=== PATIENT | male | born 2000 | race Caucasian/White ===

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

== ENCOUNTER 2018-05-06 08:59 | Emergency (ER) | payer OTHER, MEDICAID ==
[2018-05-06 09:58] LABS: ADD UMIC NO; UR ASCORBIC ACID NEGATIVE (NEGATIVE); UR BILIRUBIN (Dip) NEGATIVE (NEGATIVE); UR BLOOD (Dip) NEGATIVE (NEGATIVE); UR CLARITY CLEAR (CLEAR); UR COLOR STRAW (YELLOW); UR GLUCOSE (Dip) NEGATIVE (NEGATIVE); UR KETONES (Dip) NEGATIVE (NEGATIVE); UR LEUKOCYTE ESTERASE (Dip) NEGATIVE Leu/ul (NEGATIVE); UR NITRITE (Dip) NEGATIVE (NEGATIVE); UR SPECIFIC GRAVITY (Dip) 1.002 (1.003-1.030); UR TOTAL PROTEIN (Dip) NEGATIVE (NEGATIVE); UR UROBILINOGEN (Dip) NEGATIVE (NEGATIVE)
[2018-05-06 10:21] LABS: ADD MAN DIFF? NO
[2018-05-06 10:24] LABS: WHITE BLOOD COUNT 5.5 10^3/ul (4.8-10.8)
[2018-05-06 10:24] LABS: BASOPHILS % 0.4 % (0.0-2.0); EOSINOPHILS % 0.5 % (0.0-7.0); HEMATOCRIT 47.8 % (42.0-52.0); HEMOGLOBIN 16.3 g/dl (14.0-18.0); LYMPHOCYTES # 0.8 10^3/ul (0.8-2.9); LYMPHOCYTES % 14.6 % (18.0-55.0); MEAN CORPUSCULAR HEMOGLOBIN 29.1 pg (29.0-33.0); MEAN CORPUSCULAR HGB CONC 34.1 g/dl (32.0-37.0); MEAN CORPUSCULAR VOLUME 85.2 fl (72.0-104.0); MEAN PLATELET VOLUME 8.5 fl (7.4-10.4); MONOCYTE # 0.6 10^3/ul (0.3-0.9); MONOCYTES % 10.3 % (0.0-13.0); NEUTROPHIL # 4.1 10^3/ul (1.6-7.5); NEUTROPHILS % 73.8 % (30.0-74.0); PLATELET COUNT 292 10^3/UL (140-415); RED BLOOD COUNT 5.61 10^6/ul (4.70-6.10); RED CELL DISTRIBUTION WIDTH 12.8 % (11.5-14.5)
[2018-05-06 10:49] LABS: ALANINE AMINOTRANSFERASE 55 IU/L (13-69); ALBUMIN 4.9 g/dl (3.3-4.9); ALBUMIN/GLOBULIN RATIO 1.36; ALKALINE PHOSPHATASE 89 IU/L (42-121); ANION GAP 12 (5-13); ASPARTATE AMINO TRANSFERASE 41 IU/L (15-46); BILIRUBIN,INDIRECT 0.5 mg/dl (0-1.1); BILIRUBIN,TOTAL 0.5 mg/dl (0.2-1.3); BLOOD UREA NITROGEN 6 mg/dl (7-20); CALCIUM 9.7 mg/dl (8.4-10.2); CARBON DIOXIDE 28 mmol/L (21-31); CHLORIDE 103 mmol/L (97-110); CREATININE 0.69 mg/dl (0.61-1.24); Estimated GFR > 60 mL/min (>60); GLUCOSE 95 mg/dl (70-220); LIPASE 48 U/L (23-300); POTASSIUM 3.8 mmol/L (3.5-5.1); SODIUM 143 mmol/L (135-144); TOTAL PROTEIN 8.5 g/dl (6.1-8.1)
[2018-05-06 10:57] LABS: MONOTEST Negative (NEG)
== END 2018-05-06 11:39 | disposition home or self-care (01) ==
LOC: FTE 08:59
DX: R10.32 Left lower quadrant pain (principal)
CPT/HCPCS: 36415; 74176; 80053; 81003; 83690; 85025; 86308; 99284-25

== ENCOUNTER 2018-08-26 13:11 | Inpatient (IN) | payer MEDICAID, OTHER ==
[2018-08-26 14:12] LABS: ADD MAN DIFF? NO
[2018-08-26 14:15] LABS: BASOPHILS % 0.2 % (0.0-2.0); EOSINOPHILS % 0.2 % (0.0-7.0); HEMATOCRIT 38.6 % (42.0-52.0); HEMOGLOBIN 12.1 g/dl (14.0-18.0); LYMPHOCYTES # 1.9 10^3/ul (0.8-2.9); LYMPHOCYTES % 11.1 % (18.0-55.0); MEAN CORPUSCULAR HEMOGLOBIN 25.6 pg (29.0-33.0); MEAN CORPUSCULAR HGB CONC 31.3 g/dl (32.0-37.0); MEAN CORPUSCULAR VOLUME 81.8 fl (72.0-104.0); MEAN PLATELET VOLUME 7.8 fl (7.4-10.4); MONOCYTE # 1.4 10^3/ul (0.3-0.9); MONOCYTES % 8.1 % (0.0-13.0); NEUTROPHIL # 13.5 10^3/ul (1.6-7.5); NEUTROPHILS % 79.3 % (30.0-74.0); PLATELET COUNT 888 10^3/UL (140-415); RED BLOOD COUNT 4.72 10^6/ul (4.70-6.10); RED CELL DISTRIBUTION WIDTH 12.4 % (11.5-14.5)
[2018-08-26 14:18] LABS: ADD UMIC NO; UR ASCORBIC ACID NEGATIVE (NEGATIVE); UR BILIRUBIN (Dip) NEGATIVE (NEGATIVE); UR BLOOD (Dip) NEGATIVE (NEGATIVE); UR CLARITY CLEAR (CLEAR); UR COLOR YELLOW (YELLOW); UR GLUCOSE (Dip) NEGATIVE (NEGATIVE); UR KETONES (Dip) NEGATIVE (NEGATIVE); UR LEUKOCYTE ESTERASE (Dip) NEGATIVE Leu/ul (NEGATIVE); UR NITRITE (Dip) NEGATIVE (NEGATIVE); UR TOTAL PROTEIN (Dip) NEGATIVE (NEGATIVE); UR UROBILINOGEN (Dip) 1+ mg/dL (NEGATIVE)
[2018-08-26 14:22] LABS: PATH REVIEW? YES
[2018-08-26 14:33] LABS: ALANINE AMINOTRANSFERASE 32 IU/L (13-69); ALBUMIN 3.6 g/dl (3.3-4.9); ALBUMIN/GLOBULIN RATIO 0.81; ALKALINE PHOSPHATASE 102 IU/L (42-121); ANION GAP 12 (5-13); ASPARTATE AMINO TRANSFERASE 28 IU/L (15-46); BILIRUBIN,INDIRECT 0.8 mg/dl (0-1.1); BILIRUBIN,TOTAL 0.8 mg/dl (0.2-1.3); BLOOD UREA NITROGEN 7 mg/dl (7-20); CALCIUM 8.6 mg/dl (8.4-10.2); CARBON DIOXIDE 29 mmol/L (21-31); CHLORIDE 96 mmol/L (97-110); Estimated GFR > 60 mL/min (>60); GLUCOSE 113 mg/dl (70-220); POTASSIUM 4.3 mmol/L (3.5-5.1); SODIUM 137 mmol/L (135-144)
[2018-08-26 15:22] LABS: CREATINE KINASE 43 IU/L (23-200)
[2018-08-26 15:36] LABS: CK INDEX 1.1; CK-MB 0.47 ng/ml (0.0-2.4)
[2018-08-26 15:45] LABS: INR 1.12; PARTIAL THROMBOPLASTIN TIME 33.4 Sec (23.0-35.0); PROTIME 14.5 Sec (11.9-14.9); PT RATIO 1.1
[2018-08-26 15:54] LABS: TROPONIN-I < 0.012 ng/ml (0.000-0.120)
[2018-08-26 16:04] LABS: HIV 1&2 ANTIBODY NEGATIVE (NEGATIVE)
[2018-08-26] MEDS: IOHEXOL 100 ML (16:10)
[2018-08-26] MEDS: SOD CHLORIDE 0.9% 100 ML (16:10)
[2018-08-26 16:28] LABS: AADO2 Arterial 25.7 mmHg (7.0-24.0); Arterial Base Excess 0.4 mmol/L (-3.0-3); Arterial Blood Gas Oxygen Sat 96.1 mmHG (95.0-98.0); Arterial COHb 0.3 % (0.0-3.0); Arterial Fraction of Oxyhgb 95.5 % (93.0-99.0); Arterial MetHb 0.3 % (0.0-1.5); Arterial pCO2 35.2 mmhg (35-45); MODE ROOM AIR; Site LB
[2018-08-26] MEDS ORDERED: ONDANSETRON 4 MG INJ IV ×2 (16:30→17:00)
[2018-08-26] MEDS ORDERED: ACETAMINOPHEN 325 MG TAB PO (16:30)
[2018-08-26] MEDS ORDERED: ZOLPIDEM 5 MG TAB PO (17:00)
[2018-08-26] MEDS ORDERED: morphine 2 MG INJ IV (17:00)
[2018-08-26] MEDS ORDERED: VANCOMYCIN IV PER PHARMACY XX (17:00)
[2018-08-26] MEDS ORDERED: NACL 0.9% 3 ML SYG IV (17:00)
[2018-08-26] MEDS: VANCOMYCIN 1 GM 250 ML IVPB (18:00)
[2018-08-26 18:01] LABS: FREE THYROXINE INDEX (Calc) 3.14 ug/ml (0.65-3.89); T3 UPTAKE 40.8 % (23.5-40.5); T4 (THYROXINE) 7.7 ug/dl (5.5-11.0)
[2018-08-26] MEDS: FLUCONAZOLE 200 MG TAB PO (19:03)
[2018-08-26] MEDS: PIPER-TAZO 3.375 GM IV (PMX) 100 ML IVPB (19:03)
[2018-08-26] MEDS: LEVETIRACETAM 500 MG TAB PO (20:07)
[2018-08-26] MEDS: SOD CHLORIDE 0.9% 1,000 ML IV (22:25)
[2018-08-27] MEDS: ACETAMINOPHEN 325 MG TAB PO ×2 (04:54→23:05)
[2018-08-27 06:14] LABS: ADD MAN DIFF? NO
[2018-08-27 06:19] LABS: WHITE BLOOD COUNT 17.4 10^3/ul (4.8-10.8)
[2018-08-27 06:19] LABS: BASOPHILS % 0.2 % (0.0-2.0); EOSINOPHILS % 0.2 % (0.0-7.0); HEMATOCRIT 34.6 % (42.0-52.0); HEMOGLOBIN 11.1 g/dl (14.0-18.0); LYMPHOCYTES # 2.3 10^3/ul (0.8-2.9); LYMPHOCYTES % 12.9 % (18.0-55.0); MEAN CORPUSCULAR HEMOGLOBIN 25.8 pg (29.0-33.0); MEAN CORPUSCULAR HGB CONC 32.1 g/dl (32.0-37.0); MEAN CORPUSCULAR VOLUME 80.3 fl (72.0-104.0); MONOCYTE # 1.4 10^3/ul (0.3-0.9); MONOCYTES % 8.2 % (0.0-13.0); NEUTROPHIL # 13.5 10^3/ul (1.6-7.5); NEUTROPHILS % 77.6 % (30.0-74.0); PLATELET COUNT 841 10^3/UL (140-415); RED BLOOD COUNT 4.31 10^6/ul (4.70-6.10); RED CELL DISTRIBUTION WIDTH 12.6 % (11.5-14.5)
[2018-08-27 06:33] LABS: HEMOGLOBIN A1C 5.5 % (0-5.9)
[2018-08-27 06:48] LABS: ANION GAP 11 (5-13); BLOOD UREA NITROGEN 7 mg/dl (7-20); CALCIUM 8.2 mg/dl (8.4-10.2); CARBON DIOXIDE 26 mmol/L (21-31); CHLORIDE 102 mmol/L (97-110); CREATININE 0.75 mg/dl (0.61-1.24); Estimated GFR > 60 mL/min (>60); GLUCOSE 121 mg/dl (70-220); MAGNESIUM 2.2 mg/dl (1.7-2.5); PHOSPHORUS 4.7 mg/dl (2.5-4.9); POTASSIUM 3.6 mmol/L (3.5-5.1); SODIUM 139 mmol/L (135-144)
[2018-08-27] MEDS: VANCOMYCIN 1 GM 250 ML IVPB ×2 (08:17→11:23)
[2018-08-27] MEDS: PIPER-TAZO 3.375 GM IV (PMX) 100 ML IVPB ×4 (09:28→17:46)
[2018-08-27] MEDS: LEVETIRACETAM 500 MG TAB PO ×2 (09:29→20:54)
[2018-08-27] MEDS: FLUCONAZOLE 200 MG TAB PO (09:29)
[2018-08-27] MEDS: VANCOMYCIN TROUGH XX (17:32)
[2018-08-27] MEDS: VANCOMYCIN 1 GM (PMX) 250 ML IVPB (19:20)
[2018-08-27] MEDS: HYDROCODONE/APAP (5/325) TAB PO (22:08)
[2018-08-28] MEDS: PIPER-TAZO 3.375 GM IV (PMX) 100 ML IVPB ×4 (00:06→17:53)
[2018-08-28 04:56] LABS: VANCOMYCIN,TROUGH < 5.0 ug/ml (10.0-20.0)
[2018-08-28] MEDS: VANCOMYCIN 1 GM (PMX) 250 ML IVPB (05:13)
[2018-08-28] MEDS: LEVETIRACETAM 500 MG TAB PO ×2 (09:45→20:59)
[2018-08-28] MEDS: FLUCONAZOLE 200 MG TAB PO (09:45)
[2018-08-28] MEDS: FENTAnyl 50 MCG/ML VIAL (11:18)
[2018-08-28] MEDS: LIDOCAINE 1% (MDV) 20 ML INJ (11:45)
[2018-08-28] MEDS: MIDAZOLAM 1 MG/ML 2 ML INJ (11:57)
[2018-08-28 12:07] LABS: NIL 0.01 IU/mL; QUANTIFERON(R)-TB GOLD NEGATIVE (NEGATIVE)
[2018-08-28] MEDS ORDERED: VANCOMYCIN HCL 1.5 GM in SOD CHLORIDE 0.9% 250 ML IVPB (13:00)
[2018-08-28] MEDS: VANCOMYCIN HCL 1.25 GM in SOD CHLORIDE 0.9% 250 ML IVPB ×2 (13:43→20:59)
[2018-08-28 14:46] LABS: LACTATE DEHYDROGENASE 1334 IU/L (313-618)
[2018-08-28 15:19] LABS: CARCINOEMBRYONIC ANTIGEN 5.2 ng/ml (0.0-5.0)
[2018-08-28 16:07] LABS: IRON 27 ug/dl (35-150)
[2018-08-28 16:17] LABS: % IRON SATURATION 15 % SAT (22-52); TOTAL IRON BINDING CAPACITY 184 ug/dl (241-421)
[2018-08-28] MEDS: BARIUM SULF 2% 450 ML BTL (BERRY SMOOTHIE) PO (16:40)
[2018-08-28] MEDS: ACETAMINOPHEN 325 MG TAB PO (20:59)
[2018-08-28] MEDS ORDERED: SOD CHLORIDE 0.9% 100 ML (21:13)
[2018-08-28] MEDS ORDERED: IOHEXOL 300MG/ML 150 ML BTL (21:13)
[2018-08-29] MEDS: PIPER-TAZO 3.375 GM IV (PMX) 100 ML IVPB ×5 (00:47→23:47)
[2018-08-29] MEDS: VANCOMYCIN HCL 1.25 GM in SOD CHLORIDE 0.9% 250 ML IVPB (05:14)
[2018-08-29] MEDS: ACETAMINOPHEN 325 MG TAB PO ×2 (06:55→21:52)
[2018-08-29] MEDS: LEVETIRACETAM 500 MG TAB PO ×2 (09:09→21:50)
[2018-08-29] MEDS: FLUCONAZOLE 200 MG TAB PO (09:09)
[2018-08-29 12:48] LABS: VANCOMYCIN,TROUGH 15.5 ug/ml (10.0-20.0)
[2018-08-30] MEDS: PIPER-TAZO 3.375 GM IV (PMX) 100 ML IVPB ×3 (05:31→17:22)
[2018-08-30] MEDS: LEVETIRACETAM 500 MG TAB PO ×2 (08:25→21:14)
[2018-08-30] MEDS: FLUCONAZOLE 200 MG TAB PO (08:25)
[2018-08-31 06:04] LABS: ADD MAN DIFF? NO
[2018-08-31 06:18] LABS: BASOPHIL # 0.1 10^3/ul (0.0-0.1); BASOPHILS % 0.3 % (0.0-2.0); EOSINOPHILS # 0.1 10^3/ul (0.0-0.5); EOSINOPHILS % 0.9 % (0.0-7.0); HEMOGLOBIN 10.9 g/dl (14.0-18.0); LYMPHOCYTES # 2.8 10^3/ul (0.8-2.9); LYMPHOCYTES % 18.7 % (18.0-55.0); MEAN CORPUSCULAR HEMOGLOBIN 25.1 pg (29.0-33.0); MEAN CORPUSCULAR HGB CONC 31.1 g/dl (32.0-37.0); MEAN CORPUSCULAR VOLUME 80.5 fl (72.0-104.0); MONOCYTE # 1.1 10^3/ul (0.3-0.9); MONOCYTES % 7.3 % (0.0-13.0); NEUTROPHIL # 10.6 10^3/ul (1.6-7.5); NEUTROPHILS % 71.7 % (30.0-74.0); PLATELET COUNT 822 10^3/UL (140-415); RED BLOOD COUNT 4.35 10^6/ul (4.70-6.10)
[2018-08-31 06:18] LABS: WHITE BLOOD COUNT 14.8 10^3/ul (4.8-10.8)
[2018-08-31 06:42] LABS: ALANINE AMINOTRANSFERASE 37 IU/L (13-69); ALBUMIN 3.1 g/dl (3.3-4.9); ALBUMIN/GLOBULIN RATIO 0.79; ALKALINE PHOSPHATASE 82 IU/L (42-121); ANION GAP 10 (5-13); ASPARTATE AMINO TRANSFERASE 45 IU/L (15-46); BILIRUBIN,INDIRECT 0.4 mg/dl (0-1.1); BILIRUBIN,TOTAL 0.4 mg/dl (0.2-1.3); BLOOD UREA NITROGEN 4 mg/dl (7-20); CALCIUM 8.3 mg/dl (8.4-10.2); CARBON DIOXIDE 26 mmol/L (21-31); CHLORIDE 105 mmol/L (97-110); CREATININE 0.68 mg/dl (0.61-1.24); Estimated GFR > 60 mL/min (>60); GLUCOSE 109 mg/dl (70-220); SODIUM 141 mmol/L (135-144)
[2018-08-31] MEDS: LEVETIRACETAM 500 MG TAB PO ×2 (09:14→20:06)
[2018-08-31] MEDS: ACETAMINOPHEN 325 MG TAB PO (20:06)
[2018-09-01] MEDS: LEVETIRACETAM 500 MG TAB PO (09:45)
[2018-09-01] MEDS ORDERED: POLYMYXIN/BACITRACIN 1L IRRIG (10:39)
[2018-09-01] MEDS ORDERED: MIDAZOLAM 1 MG/ML 2 ML INJ (10:57)
[2018-09-01] MEDS ORDERED: FENTAnyl 50 MCG/ML VIAL (10:57)
[2018-09-01] MEDS ORDERED: CEFAZOLIN 1 GM/50 ML (PMX) 50 ML IVPB (11:12)
[2018-09-01] MEDS ORDERED: LIDOCAINE 1%/EPI 30 ML INJ INJ (11:30)
[2018-09-01] MEDS ORDERED: LIDOCAINE 1% (MDV) 20 ML INJ (12:39)
[2018-09-01] MEDS: GUAIFENESIN/CODEINE 5ML CUP PO (14:47)
[2018-09-01] MEDS: HYDROCODONE/APAP (5/325) TAB PO (16:10)
[2018-09-01 18:29] LABS: PROTIME 15.3 Sec (11.9-14.9); PT RATIO 1.2
== END 2018-09-01 18:48 | disposition home or self-care (01) | DRG 981 ==
LOC: PP2 08-30 19:21 → TEL 22:05 → FTE 13:11
PROC: 0WBC3ZX Excision of Mediastinum, Percutaneous Approach, Diagnostic (ICD-10-PCS; principal; 2018-08-28)
PROC: 0JH60WZ Insertion of Totally Implantable Vascular Access Device into Chest Subcutaneous Tissue and Fascia, Open Approach (ICD-10-PCS; 2018-09-01)
PROC: 05HM33Z Insertion of Infusion Device into Right Internal Jugular Vein, Percutaneous Approach (ICD-10-PCS; 2018-09-01)
PROC: B5131ZA Fluoroscopy of Right Jugular Veins using Low Osmolar Contrast, Guidance (ICD-10-PCS; 2018-09-01)
DX: C38.1 Malignant neoplasm of anterior mediastinum (principal); E43 Unspecified severe protein-calorie malnutrition; Z68.1 Body mass index [BMI] 19.9 or less, adult; R64 Cachexia; R65.10 Systemic inflammatory response syndrome (SIRS) of non-infectious origin without acute organ dysfunction; R59.1 Generalized enlarged lymph nodes; G40.909 Epilepsy, unspecified, not intractable, without status epilepticus; D47.3 Essential (hemorrhagic) thrombocythemia; Z72.0 Tobacco use; K59.00 Constipation, unspecified
CPT/HCPCS: 36415; 36561; 36600; 71045; 71275; 74178; 76870; 77012; 80048; 80053; 80202; 81003; 82105; 82378; 82550; 82553; 82728; 82803; 83036; 83540; 83615; 83735; 84100; 84436; 84479; 84484; 84702; 85025; 85610; 85730; 86480; 86635; 86703; 87040-91; 88307; 88313; 88341; 88342; 93005; 93306; 94010; 94726; 94729; 99285-25

== ENCOUNTER 2018-09-07 01:43 | Inpatient (IN) | payer OTHER, MEDICAID ==
[2018-09-07 02:11] LABS: ADD MAN DIFF? NO
[2018-09-07 02:14] LABS: ABNORMAL IP MESSAGE 1; BASOPHILS % 0.2 % (0.0-2.0); HEMOGLOBIN 10.7 g/dl (14.0-18.0); LYMPHOCYTES # 1.9 10^3/ul (0.8-2.9); LYMPHOCYTES % 7.8 % (18.0-55.0); MEAN CORPUSCULAR HEMOGLOBIN 25.2 pg (29.0-33.0); MEAN CORPUSCULAR HGB CONC 32.4 g/dl (32.0-37.0); MEAN CORPUSCULAR VOLUME 77.6 fl (72.0-104.0); MEAN PLATELET VOLUME 7.6 fl (7.4-10.4); MONOCYTE # 1.3 10^3/ul (0.3-0.9); MONOCYTES % 5.1 % (0.0-13.0); NEUTROPHIL # 20.9 10^3/ul (1.6-7.5); NEUTROPHILS % 85.9 % (30.0-74.0); PLATELET COUNT 736 10^3/UL (140-415); POSITIVE DIFF @See below; RED BLOOD COUNT 4.25 10^6/ul (4.70-6.10); RED CELL DISTRIBUTION WIDTH 13.3 % (11.5-14.5)
[2018-09-07 02:14] LABS: WHITE BLOOD COUNT 24.3 10^3/ul (4.8-10.8)
[2018-09-07] MEDS: IBUPROFEN 600 MG TAB PO (02:14)
[2018-09-07] MEDS: CEFTRIAXONE 1 GM/50 ML (PMX) 50 ML IVPB (02:15)
[2018-09-07] MEDS: SODIUM CHLORIDE 0.9% 1L BAG IV* (02:16)
[2018-09-07] MEDS: ALBUTEROL 0.5% (NEB) 2.5 MG/0.5 ML AMP INH (02:17)
[2018-09-07 02:38] LABS: ALANINE AMINOTRANSFERASE 38 IU/L (13-69); ALBUMIN 3.3 g/dl (3.3-4.9); ALBUMIN/GLOBULIN RATIO 0.78; ALKALINE PHOSPHATASE 99 IU/L (42-121); ANION GAP 14 (5-13); ASPARTATE AMINO TRANSFERASE 38 IU/L (15-46); BILIRUBIN,INDIRECT 0.6 mg/dl (0-1.1); BILIRUBIN,TOTAL 0.6 mg/dl (0.2-1.3); BLOOD UREA NITROGEN 8 mg/dl (7-20); CALCIUM 8.4 mg/dl (8.4-10.2); CARBON DIOXIDE 24 mmol/L (21-31); CHLORIDE 97 mmol/L (97-110); CREATININE 0.77 mg/dl (0.61-1.24); Estimated GFR > 60 mL/min (>60); GLUCOSE 145 mg/dl (70-220); LIPASE 30 U/L (23-300); POTASSIUM 4.4 mmol/L (3.5-5.1); SODIUM 135 mmol/L (135-144); TOTAL PROTEIN 7.5 g/dl (6.1-8.1)
[2018-09-07 02:50] LABS: TROPONIN-I < 0.012 ng/ml (0.000-0.120)
[2018-09-07] MEDS: AZITHROMYCIN 500MG/NS (PMX) 250 ML IVPB (03:15)
[2018-09-07] MEDS: HYDROmorphONE 1 MG/ML SYG IV (03:26)
[2018-09-07 03:29] LABS: AADO2 Arterial 27.6 mmHg (7.0-24.0); Allen Test ACCEPTAB; Arterial Base Excess -2.8 mmol/L (-3.0-3); Arterial Blood Gas Oxygen Sat 96.2 mmHG (95.0-98.0); Arterial COHb 0.1 % (0.0-3.0); Arterial Fraction of Oxyhgb 95.6 % (93.0-99.0); Arterial HCO3 20.5 mmol/L (22.0-26.0); Arterial MetHb 0.5 % (0.0-1.5); Arterial pCO2 30.8 mmhg (35-45); MODE ROOM AIR; Site Left Radial
[2018-09-07] MEDS: LACTATED RINGER'S 1,000 ML IV (03:46)
[2018-09-07 03:57] LABS: ADD UMIC NO; UR ASCORBIC ACID NEGATIVE (NEGATIVE); UR BILIRUBIN (Dip) NEGATIVE (NEGATIVE); UR BLOOD (Dip) NEGATIVE (NEGATIVE); UR CLARITY CLEAR (CLEAR); UR COLOR STRAW (YELLOW); UR GLUCOSE (Dip) NEGATIVE (NEGATIVE); UR KETONES (Dip) NEGATIVE (NEGATIVE); UR LEUKOCYTE ESTERASE (Dip) NEGATIVE Leu/ul (NEGATIVE); UR NITRITE (Dip) NEGATIVE (NEGATIVE); UR SPECIFIC GRAVITY (Dip) 1.003 (1.003-1.030); UR TOTAL PROTEIN (Dip) NEGATIVE (NEGATIVE); UR UROBILINOGEN (Dip) NEGATIVE (NEGATIVE)
[2018-09-07] MEDS ORDERED: DOCUSATE SODIUM 100 MG CAP PO (04:00)
[2018-09-07] MEDS ORDERED: NACL 0.9% 3 ML SYG IV (04:00)
[2018-09-07] MEDS ORDERED: VANCOMYCIN IV PER PHARMACY XX (04:00)
[2018-09-07 04:24] LABS: INR 1.12; PROTIME 14.5 Sec (11.9-14.9); PT RATIO 1.1
[2018-09-07 04:25] LABS: PARTIAL THROMBOPLASTIN TIME 34.5 Sec (23.0-35.0)
[2018-09-07] MEDS: SOD CHLORIDE 0.9% 1,000 ML IV ×2 (05:12→17:16)
[2018-09-07 05:18] LABS: LACTIC ACID 2.2 mmol/L (0.5-2.0)
[2018-09-07] MEDS: VANCOMYCIN HCL 1.25 GM in SOD CHLORIDE 0.9% 250 ML IVPB ×3 (05:40→20:26)
[2018-09-07] MEDS: PIPER-TAZO 3.375 GM IV (PMX) 100 ML IVPB ×3 (06:00→17:15)
[2018-09-07 06:26] LABS: LACTIC ACID 1.4 mmol/L (0.5-2.0)
[2018-09-07] MEDS: HYDROmorphONE 0.5 MG/0.5 ML SYG IV ×4 (08:50→22:11)
[2018-09-07] MEDS: LEVETIRACETAM 500 MG TAB PO ×2 (09:31→20:25)
[2018-09-07] MEDS: ENOXAPARIN 40 MG/0.4 ML SYG SC (09:39)
[2018-09-07] MEDS: IPRATROPIUM (NEB) 0.5 MG/2.5 ML AMP HHN ×3 (13:00→20:21)
[2018-09-07] MEDS: ACETAMINOPHEN 325 MG TAB PO (17:08)
[2018-09-08] MEDS: PIPER-TAZO 3.375 GM IV (PMX) 100 ML IVPB ×4 (00:59→17:45)
[2018-09-08] MEDS: ACETAMINOPHEN 325 MG TAB PO ×3 (00:59→20:25)
[2018-09-08] MEDS: HYDROmorphONE 0.5 MG/0.5 ML SYG IV ×3 (02:05→11:46)
[2018-09-08] MEDS: AZITHROMYCIN 500MG/NS (PMX) 250 ML IVPB (02:21)
[2018-09-08 04:01] LABS: ADD MAN DIFF? NO
[2018-09-08 04:09] LABS: WHITE BLOOD COUNT 21.8 10^3/ul (4.8-10.8)
[2018-09-08 04:09] LABS: ABNORMAL IP MESSAGE 1; BASOPHIL # 0.1 10^3/ul (0.0-0.1); BASOPHILS % 0.3 % (0.0-2.0); EOSINOPHILS # 0.1 10^3/ul (0.0-0.5); EOSINOPHILS % 0.2 % (0.0-7.0); HEMATOCRIT 29.1 % (42.0-52.0); HEMOGLOBIN 9.3 g/dl (14.0-18.0); LYMPHOCYTES # 2.1 10^3/ul (0.8-2.9); LYMPHOCYTES % 9.7 % (18.0-55.0); MEAN CORPUSCULAR HEMOGLOBIN 25.5 pg (29.0-33.0); MEAN CORPUSCULAR VOLUME 79.9 fl (72.0-104.0); MEAN PLATELET VOLUME 7.7 fl (7.4-10.4); MONOCYTE # 1.7 10^3/ul (0.3-0.9); MONOCYTES % 7.7 % (0.0-13.0); NEUTROPHIL # 17.6 10^3/ul (1.6-7.5); PLATELET COUNT 552 10^3/UL (140-415); POSITIVE DIFF @See below; RED BLOOD COUNT 3.64 10^6/ul (4.70-6.10); RED CELL DISTRIBUTION WIDTH 13.6 % (11.5-14.5)
[2018-09-08 04:32] LABS: ALANINE AMINOTRANSFERASE 28 IU/L (13-69); ALBUMIN 2.7 g/dl (3.3-4.9); ALBUMIN/GLOBULIN RATIO 0.77; ALKALINE PHOSPHATASE 76 IU/L (42-121); ANION GAP 7 (5-13); ASPARTATE AMINO TRANSFERASE 28 IU/L (15-46); BILIRUBIN,INDIRECT 0.6 mg/dl (0-1.1); BILIRUBIN,TOTAL 0.6 mg/dl (0.2-1.3); BLOOD UREA NITROGEN 5 mg/dl (7-20); CARBON DIOXIDE 27 mmol/L (21-31); CHLORIDE 103 mmol/L (97-110); CREATININE 0.82 mg/dl (0.61-1.24); Estimated GFR > 60 mL/min (>60); GLUCOSE 112 mg/dl (70-220); MAGNESIUM 2.1 mg/dl (1.7-2.5); POTASSIUM 4.4 mmol/L (3.5-5.1); SODIUM 137 mmol/L (135-144); TOTAL PROTEIN 6.2 g/dl (6.1-8.1)
[2018-09-08 04:37] LABS: VANCOMYCIN,TROUGH 11.6 ug/ml (10.0-20.0)
[2018-09-08] MEDS: VANCOMYCIN HCL 1.25 GM in SOD CHLORIDE 0.9% 250 ML IVPB ×3 (04:50→20:26)
[2018-09-08] MEDS: IPRATROPIUM (NEB) 0.5 MG/2.5 ML AMP HHN ×4 (08:13→20:48)
[2018-09-08] MEDS: LEVETIRACETAM 500 MG TAB PO ×2 (08:25→20:25)
[2018-09-08] MEDS: ENOXAPARIN 40 MG/0.4 ML SYG SC (08:45)
[2018-09-08] MEDS: SOD CHLORIDE 0.9% 1,000 ML IV ×3 (12:15→22:03)
[2018-09-08] MEDS ORDERED: OXYCODONE/ACETAMINOPHEN (5/325) TAB PO (12:30)
[2018-09-08] MEDS ORDERED: HYDROmorphONE 2 MG/ML SYG IV (12:30)
[2018-09-08] MEDS ORDERED: DIPHENHYDRAMINE 50 MG INJ IV (14:30)
[2018-09-08] MEDS ORDERED: NALOXONE (0.4 MG/ML) INJ IV (15:00)
[2018-09-08] MEDS: HYDROmorphONE 0.2 MG/ML PCA IV (15:45)
[2018-09-08 17:00] LABS: PROCALCITONIN 0.45 ng/mL (0.00-0.10)
[2018-09-08 17:07] LABS: LACTATE DEHYDROGENASE 1631 IU/L (313-618)
[2018-09-08 17:34] LABS: URIC ACID 2.5 mg/dl (3.1-7.9)
[2018-09-09] MEDS: PIPER-TAZO 3.375 GM IV (PMX) 100 ML IVPB ×5 (00:15→23:46)
[2018-09-09] MEDS: HYDROmorphONE 0.2 MG/ML PCA IV ×3 (02:21→23:54)
[2018-09-09] MEDS: AZITHROMYCIN 500MG/NS (PMX) 250 ML IVPB (02:55)
[2018-09-09 05:18] LABS: ADD MAN DIFF? NO
[2018-09-09] MEDS: VANCOMYCIN HCL 1.25 GM in SOD CHLORIDE 0.9% 250 ML IVPB ×3 (05:22→21:23)
[2018-09-09 05:23] LABS: ABNORMAL IP MESSAGE 1; BASOPHIL # 0.1 10^3/ul (0.0-0.1); BASOPHILS % 0.2 % (0.0-2.0); EOSINOPHILS # 0.1 10^3/ul (0.0-0.5); EOSINOPHILS % 0.4 % (0.0-7.0); HEMATOCRIT 30.9 % (42.0-52.0); HEMOGLOBIN 9.7 g/dl (14.0-18.0); LYMPHOCYTES # 1.7 10^3/ul (0.8-2.9); LYMPHOCYTES % 6.9 % (18.0-55.0); MEAN CORPUSCULAR HEMOGLOBIN 24.7 pg (29.0-33.0); MEAN CORPUSCULAR HGB CONC 31.4 g/dl (32.0-37.0); MEAN CORPUSCULAR VOLUME 78.8 fl (72.0-104.0); MONOCYTE # 1.8 10^3/ul (0.3-0.9); MONOCYTES % 7.2 % (0.0-13.0); NEUTROPHIL # 20.8 10^3/ul (1.6-7.5); NEUTROPHILS % 84.2 % (30.0-74.0); PLATELET COUNT 600 10^3/UL (140-415); POSITIVE DIFF @See below; RED BLOOD COUNT 3.92 10^6/ul (4.70-6.10); RED CELL DISTRIBUTION WIDTH 13.8 % (11.5-14.5)
[2018-09-09 05:23] LABS: WHITE BLOOD COUNT 24.7 10^3/ul (4.8-10.8)
[2018-09-09 05:44] LABS: ANION GAP 7 (5-13); BLOOD UREA NITROGEN 4 mg/dl (7-20); CALCIUM 8.1 mg/dl (8.4-10.2); CARBON DIOXIDE 28 mmol/L (21-31); CHLORIDE 101 mmol/L (97-110); Estimated GFR > 60 mL/min (>60); GLUCOSE 109 mg/dl (70-220); SODIUM 136 mmol/L (135-144)
[2018-09-09] MEDS: IPRATROPIUM (NEB) 0.5 MG/2.5 ML AMP HHN ×4 (09:00→21:00)
[2018-09-09] MEDS: LEVETIRACETAM 500 MG TAB PO ×2 (09:31→21:23)
[2018-09-09] MEDS: ENOXAPARIN 40 MG/0.4 ML SYG SC (09:36)
[2018-09-09] MEDS: SOD CHLORIDE 0.9% 1,000 ML IV ×3 (10:28→21:45)
[2018-09-09] MEDS ORDERED: PROMETHAZINE/CODEINE 5ML CUP PO (12:00)
[2018-09-09] MEDS: LEVALBUTEROL (NEB) 1.25 MG/0.5 ML AMP HHN ×2 (13:00→16:57)
[2018-09-09] MEDS: ACETAMINOPHEN 325 MG TAB PO (13:59)
[2018-09-09 16:56] LABS: FLD MN% 10.6 %; FLD PMN% 89.4 %; FLD RBC 10000 /uL; FLD WBC 3495 /cmm
[2018-09-09] MEDS: LIDOCAINE 1% (MPF) 5 ML VIAL (17:10)
[2018-09-09 17:30] LABS: FLD CLARITY HAZY; FLD COLOR AMBER
[2018-09-09 17:30] LABS: FLD TYPE PLEURAL
[2018-09-09 17:55] LABS: FLUID GLUCOSE 75 mg/dl; FLUID TYPE PLEURAL FLUID
[2018-09-09 17:57] LABS: FLUID TOTAL PROTEIN 3.4 g/dl
[2018-09-09 18:07] LABS: FLUID LD 7663 U/L
[2018-09-09 18:08] LABS: FLUID TYPE PLEURAL FLUID
[2018-09-09] MEDS: IBUPROFEN 600 MG TAB PO ×2 (18:28→23:00)
[2018-09-09] MEDS: COLCHICINE 0.6 MG CAP PO (18:28)
[2018-09-09 22:44] LABS: TROPONIN-I 0.018 ng/ml (0.000-0.120)
[2018-09-10] MEDS: LEVALBUTEROL (NEB) 1.25 MG/0.5 ML AMP HHN ×2 (02:51→11:13)
[2018-09-10] MEDS: AZITHROMYCIN 500MG/NS (PMX) 250 ML IVPB (03:54)
[2018-09-10] MEDS: ONDANSETRON 4 MG INJ IV ×3 (03:54→21:05)
[2018-09-10] MEDS: ACETAMINOPHEN 325 MG TAB PO ×2 (04:04→19:31)
[2018-09-10 04:57] LABS: ADD MAN DIFF? NO
[2018-09-10 05:06] LABS: BASOPHILS % 0.2 % (0.0-2.0); EOSINOPHILS # 0.1 10^3/ul (0.0-0.5); EOSINOPHILS % 0.6 % (0.0-7.0); HEMATOCRIT 29.7 % (42.0-52.0); HEMOGLOBIN 9.4 g/dl (14.0-18.0); LYMPHOCYTES # 1.2 10^3/ul (0.8-2.9); MEAN CORPUSCULAR HGB CONC 31.6 g/dl (32.0-37.0); MEAN PLATELET VOLUME 7.9 fl (7.4-10.4); MONOCYTE # 1.4 10^3/ul (0.3-0.9); MONOCYTES % 6.9 % (0.0-13.0); NEUTROPHIL # 17.1 10^3/ul (1.6-7.5); NEUTROPHILS % 85.3 % (30.0-74.0); PLATELET COUNT 536 10^3/UL (140-415); RED BLOOD COUNT 3.76 10^6/ul (4.70-6.10); RED CELL DISTRIBUTION WIDTH 13.9 % (11.5-14.5)
[2018-09-10 05:28] LABS: ANION GAP 9 (5-13); BLOOD UREA NITROGEN 2 mg/dl (7-20); CALCIUM 7.8 mg/dl (8.4-10.2); CARBON DIOXIDE 26 mmol/L (21-31); CHLORIDE 100 mmol/L (97-110); CREATININE 0.55 mg/dl (0.61-1.24); Estimated GFR > 60 mL/min (>60); GLUCOSE 115 mg/dl (70-220); SODIUM 135 mmol/L (135-144)
[2018-09-10 05:33] LABS: TROPONIN-I 0.028 ng/ml (0.000-0.120)
[2018-09-10] MEDS: VANCOMYCIN HCL 1.25 GM in SOD CHLORIDE 0.9% 250 ML IVPB ×3 (06:18→20:40)
[2018-09-10] MEDS: IBUPROFEN 600 MG TAB PO ×3 (06:18→21:12)
[2018-09-10] MEDS: PIPER-TAZO 3.375 GM IV (PMX) 100 ML IVPB ×4 (06:18→23:50)
[2018-09-10] MEDS: IPRATROPIUM (NEB) 0.5 MG/2.5 ML AMP HHN ×5 (09:00→21:35)
[2018-09-10] MEDS: ENOXAPARIN 40 MG/0.4 ML SYG SC (09:00)
[2018-09-10] MEDS: LEVETIRACETAM 500 MG TAB PO ×2 (10:49→20:40)
[2018-09-10] MEDS: COLCHICINE 0.6 MG CAP PO (10:50)
[2018-09-10] MEDS: LIDOCAINE 1% (MPF) 5 ML VIAL (12:25)
[2018-09-10] MEDS: HYDROmorphONE 0.2 MG/ML PCA IV ×2 (12:26→22:12)
[2018-09-10] MEDS: SOD CHLORIDE 0.9% 1,000 ML IV (19:04)
[2018-09-11] MEDS: AZITHROMYCIN 500MG/NS (PMX) 250 ML IVPB (02:22)
[2018-09-11] MEDS: ACETAMINOPHEN 325 MG TAB PO (04:13)
[2018-09-11] MEDS: SOD CHLORIDE 0.9% 1,000 ML IV (04:16)
[2018-09-11] MEDS: PIPER-TAZO 3.375 GM IV (PMX) 100 ML IVPB ×3 (05:18→18:25)
[2018-09-11] MEDS: VANCOMYCIN HCL 1.25 GM in SOD CHLORIDE 0.9% 250 ML IVPB (05:18)
[2018-09-11 05:21] LABS: ADD MAN DIFF? NO
[2018-09-11 05:28] LABS: BASOPHILS % 0.2 % (0.0-2.0); EOSINOPHILS # 0.1 10^3/ul (0.0-0.5); EOSINOPHILS % 0.8 % (0.0-7.0); HEMATOCRIT 31.1 % (42.0-52.0); HEMOGLOBIN 9.8 g/dl (14.0-18.0); LYMPHOCYTES % 10.6 % (18.0-55.0); MEAN CORPUSCULAR HEMOGLOBIN 24.7 pg (29.0-33.0); MEAN CORPUSCULAR HGB CONC 31.5 g/dl (32.0-37.0); MEAN CORPUSCULAR VOLUME 78.5 fl (72.0-104.0); MEAN PLATELET VOLUME 7.8 fl (7.4-10.4); MONOCYTE # 1.3 10^3/ul (0.3-0.9); MONOCYTES % 6.9 % (0.0-13.0); NEUTROPHIL # 14.9 10^3/ul (1.6-7.5); NEUTROPHILS % 80.6 % (30.0-74.0); PLATELET COUNT 586 10^3/UL (140-415); RED BLOOD COUNT 3.96 10^6/ul (4.70-6.10)
[2018-09-11 05:28] LABS: WHITE BLOOD COUNT 18.5 10^3/ul (4.8-10.8)
[2018-09-11 05:55] LABS: ANION GAP 9 (5-13); CALCIUM 7.7 mg/dl (8.4-10.2); CARBON DIOXIDE 26 mmol/L (21-31); CHLORIDE 99 mmol/L (97-110); CREATININE 0.66 mg/dl (0.61-1.24); Estimated GFR > 60 mL/min (>60); GLUCOSE 99 mg/dl (70-220); SODIUM 134 mmol/L (135-144)
[2018-09-11] MEDS: IBUPROFEN 600 MG TAB PO ×3 (06:00→22:00)
[2018-09-11 06:19] LABS: BLOOD UREA NITROGEN < 2 mg/dl (7-20)
[2018-09-11] MEDS: IPRATROPIUM (NEB) 0.5 MG/2.5 ML AMP HHN ×4 (09:00→21:00)
[2018-09-11] MEDS: COLCHICINE 0.6 MG CAP PO (09:05)
[2018-09-11] MEDS: LEVETIRACETAM 500 MG TAB PO ×2 (09:05→20:46)
[2018-09-11] MEDS: ENOXAPARIN 40 MG/0.4 ML SYG SC ×2 (09:06→10:00)
[2018-09-11] MEDS: HYDROmorphONE 0.2 MG/ML PCA IV ×2 (10:14→22:01)
[2018-09-11 10:53] LABS: PLATELET COUNT 577 10^3/UL (140-415)
[2018-09-11 11:14] LABS: INR 1.14; PARTIAL THROMBOPLASTIN TIME 37.9 Sec (23.0-35.0); PROTIME 14.7 Sec (11.9-14.9); PT RATIO 1.1; THROMBIN TIME 14.7 SEC (13.8-19.1)
[2018-09-11] MEDS: DIPHENHYDRAMINE 50 MG INJ IV (11:33)
[2018-09-11 13:44] LABS: VANCOMYCIN,TROUGH 9.5 ug/ml (10.0-20.0)
[2018-09-11 14:09] LABS: HEPATITIS B SURFACE ANTIBODY POSITIVE (NEGATIVE)
[2018-09-11 14:10] LABS: HEPATITIS B SURFACE ANTIGEN NEGATIVE (NEGATIVE)
[2018-09-11 14:27] LABS: HEPATITIS B CORE ANTIBODY NEGATIVE (NEGATIVE)
[2018-09-11 14:27] LABS: HEPATITIS C VIRAL ANTIBODY NEGATIVE (NEGATIVE); HIV 1&2 ANTIBODY NEGATIVE (NEGATIVE)
[2018-09-11] MEDS: LORAZEPAM 0.5 MG TAB PO (14:43)
[2018-09-11 15:07] LABS: RAPID PLASMA REAGIN NONREACTIVE (NR)
[2018-09-11] MEDS ORDERED: ARTIFICIAL TEARS 15 ML OPH BOTH EYES (16:00)
[2018-09-11] MEDS: SOD CHLORIDE 0.45% 1,000 ML IV (21:19)
[2018-09-11] MEDS: APREPITANT 125 MG PO (22:36)
[2018-09-11] MEDS: ONDANSETRON INJ 16 MG, DEXAMETHASONE 4 MG/ML 20 MG in DEXTROSE 5% 50 ML IV (22:36)
[2018-09-11] MEDS ORDERED: PROCHLORPERAZINE 10 MG INJ IV (23:00)
[2018-09-11] MEDS: SOD CHLORIDE 0.9% IV (23:14)
[2018-09-11] MEDS: CISPLATIN IV (23:14)
[2018-09-12] MEDS: ETOPOSIDE IV (01:28)
[2018-09-12] MEDS: SOD CHLORIDE 0.9% IV ×5 (01:28→23:11)
[2018-09-12] MEDS: PIPER-TAZO 3.375 GM IV (PMX) 100 ML IVPB ×5 (02:31→23:53)
[2018-09-12] MEDS: MESNA IV ×2 (04:50→05:13)
[2018-09-12] MEDS: IFOSFAMIDE IV (05:03)
[2018-09-12 05:29] LABS: ADD MAN DIFF? NO
[2018-09-12 05:33] LABS: WHITE BLOOD COUNT 19.2 10^3/ul (4.8-10.8)
[2018-09-12 05:33] LABS: BASOPHILS % 0.1 % (0.0-2.0); HEMATOCRIT 32.5 % (42.0-52.0); HEMOGLOBIN 10.2 g/dl (14.0-18.0); LYMPHOCYTES # 0.6 10^3/ul (0.8-2.9); LYMPHOCYTES % 3.3 % (18.0-55.0); MEAN CORPUSCULAR HEMOGLOBIN 24.6 pg (29.0-33.0); MEAN CORPUSCULAR HGB CONC 31.4 g/dl (32.0-37.0); MEAN CORPUSCULAR VOLUME 78.3 fl (72.0-104.0); MEAN PLATELET VOLUME 8.4 fl (7.4-10.4); MONOCYTE # 0.2 10^3/ul (0.3-0.9); MONOCYTES % 0.8 % (0.0-13.0); NEUTROPHIL # 18.3 10^3/ul (1.6-7.5); PLATELET COUNT 548 10^3/UL (140-415); RED BLOOD COUNT 4.15 10^6/ul (4.70-6.10); RED CELL DISTRIBUTION WIDTH 14.1 % (11.5-14.5)
[2018-09-12] MEDS: IBUPROFEN 600 MG TAB PO ×3 (06:00→21:54)
[2018-09-12] MEDS: DIPHENHYDRAMINE 50 MG INJ IV (06:19)
[2018-09-12 06:42] LABS: ANION GAP 7 (5-13); BLOOD UREA NITROGEN 2 mg/dl (7-20); CALCIUM 8.3 mg/dl (8.4-10.2); CARBON DIOXIDE 27 mmol/L (21-31); CHLORIDE 102 mmol/L (97-110); Estimated GFR > 60 mL/min (>60); GLUCOSE 134 mg/dl (70-220); MAGNESIUM 2.2 mg/dl (1.7-2.5); PHOSPHORUS 4.4 mg/dl (2.5-4.9); POTASSIUM 4.2 mmol/L (3.5-5.1); SODIUM 136 mmol/L (135-144)
[2018-09-12] MEDS: IPRATROPIUM (NEB) 0.5 MG/2.5 ML AMP HHN ×4 (08:31→21:00)
[2018-09-12] MEDS: LIDOCAINE 1% (MPF) 5 ML VIAL SC (09:00)
[2018-09-12] MEDS: COLCHICINE 0.6 MG CAP PO (09:21)
[2018-09-12] MEDS: LEVETIRACETAM 500 MG TAB PO ×2 (09:21→21:03)
[2018-09-12] MEDS: SOD CHLORIDE 0.45% 1,000 ML IV ×2 (10:20→19:01)
[2018-09-12] MEDS: ENOXAPARIN 40 MG/0.4 ML SYG SC (10:41)
[2018-09-12] MEDS: HYDROmorphONE 0.2 MG/ML PCA IV ×2 (10:46→22:33)
[2018-09-12] MEDS: ONDANSETRON 4 MG INJ IV (19:44)
[2018-09-12] MEDS: PROCHLORPERAZINE 10 MG INJ IV (21:26)
[2018-09-12] MEDS: LEVALBUTEROL (NEB) 1.25 MG/0.5 ML AMP HHN (21:32)
[2018-09-12] MEDS ORDERED: APREPITANT 80 MG CAPSULE PO (22:00)
[2018-09-12] MEDS: ONDANSETRON INJ 16 MG, DEXAMETHASONE 4 MG/ML 20 MG in DEXTROSE 5% 50 ML IV (22:01)
[2018-09-12] MEDS: APREPITANT 80 MG CAPSULE PO (22:23)
[2018-09-12] MEDS ORDERED: METOCLOPRAMIDE 10 MG INJ IV (22:30)
[2018-09-12] MEDS ORDERED: CISPLATIN IV (23:00)
[2018-09-12] MEDS ORDERED: SOD CHLORIDE 0.9% IV (23:00)
[2018-09-12] MEDS: CISPLATIN IV (23:11)
[2018-09-13] MEDS: ETOPOSIDE IV (01:53)
[2018-09-13] MEDS: SOD CHLORIDE 0.9% IV ×4 (01:53→23:48)
[2018-09-13 05:16] LABS: WHITE BLOOD COUNT 27.8 10^3/ul (4.8-10.8)
[2018-09-13 05:16] LABS: ABNORMAL IP MESSAGE 1; HEMATOCRIT 31.1 % (42.0-52.0); HEMOGLOBIN 9.9 g/dl (14.0-18.0); MEAN CORPUSCULAR HGB CONC 31.8 g/dl (32.0-37.0); MEAN CORPUSCULAR VOLUME 78.5 fl (72.0-104.0); PLATELET COUNT 624 10^3/UL (140-415); POSITIVE DIFF @See below; RED BLOOD COUNT 3.96 10^6/ul (4.70-6.10); RED CELL DISTRIBUTION WIDTH 14.1 % (11.5-14.5)
[2018-09-13] MEDS: MESNA IV (05:17)
[2018-09-13 05:42] LABS: ADD MAN DIFF? YES
[2018-09-13 05:47] LABS: ANION GAP 6 (5-13); BLOOD UREA NITROGEN 6 mg/dl (7-20); CALCIUM 7.9 mg/dl (8.4-10.2); CARBON DIOXIDE 29 mmol/L (21-31); CHLORIDE 101 mmol/L (97-110); Estimated GFR > 60 mL/min (>60); GLUCOSE 165 mg/dl (70-220); MAGNESIUM 2.3 mg/dl (1.7-2.5); PHOSPHORUS 3.6 mg/dl (2.5-4.9); POTASSIUM 4.4 mmol/L (3.5-5.1); SODIUM 136 mmol/L (135-144)
[2018-09-13] MEDS: IFOSFAMIDE IV (05:47)
[2018-09-13] MEDS: PIPER-TAZO 3.375 GM IV (PMX) 100 ML IVPB ×3 (05:50→17:26)
[2018-09-13] MEDS: IBUPROFEN 600 MG TAB PO ×3 (05:53→22:58)
[2018-09-13] MEDS: COLCHICINE 0.6 MG CAP PO (08:46)
[2018-09-13] MEDS: LEVETIRACETAM 500 MG TAB PO ×2 (08:46→21:08)
[2018-09-13] MEDS: BISACODYL (EC) 5 MG TAB PO (08:47)
[2018-09-13] MEDS: ENOXAPARIN 40 MG/0.4 ML SYG SC (08:51)
[2018-09-13] MEDS: PROCHLORPERAZINE 10 MG INJ IV (08:55)
[2018-09-13 09:31] LABS: ADD UMIC NO; UR ASCORBIC ACID NEGATIVE (NEGATIVE); UR BILIRUBIN (Dip) NEGATIVE (NEGATIVE); UR BLOOD (Dip) NEGATIVE (NEGATIVE); UR CLARITY CLEAR (CLEAR); UR COLOR STRAW (YELLOW); UR GLUCOSE (Dip) 1+ mg/dL (NEGATIVE); UR KETONES (Dip) TRACE mg/dL (NEGATIVE); UR LEUKOCYTE ESTERASE (Dip) NEGATIVE Leu/ul (NEGATIVE); UR NITRITE (Dip) NEGATIVE (NEGATIVE); UR SPECIFIC GRAVITY (Dip) 1.006 (1.003-1.030); UR TOTAL PROTEIN (Dip) NEGATIVE (NEGATIVE); UR UROBILINOGEN (Dip) NEGATIVE (NEGATIVE)
[2018-09-13] MEDS: IPRATROPIUM (NEB) 0.5 MG/2.5 ML AMP HHN ×4 (09:36→21:00)
[2018-09-13] MEDS ORDERED: NA PHOSPHATE/BIPHOS 133 ML ENEMA PR (10:00)
[2018-09-13 10:02] LABS: ANISOCYTOSIS 1+ (0-0); BAND NEUTROPHILS #M 2.5 10^3/ul (0.0-0.6); BAND NEUTROPHILS % (M) 9 % (0-10); BURR CELLS 2+ (0-0); LYMPHOCYTES #M 0.8 10^3/ul (0.8-2.9); LYMPHOCYTES % (M) 3 % (18-55); MICROCYTOSIS 1+ (0-0); MONOCYTE #M 0.5 10^3/ul (0.3-0.9); MONOCYTES % (M) 2 % (0-13); PLATELET ESTIMATE INCREASED; POIKILOCYTOSIS 3+ (0-0); POLYCHROMASIA 1+ (0-0); SEG NEUT #M 24.9 10^3/ul (1.6-7.5); SEGMENTED NEUTROPHILS (M) % 87 % (30-74); SMUDGE%M 9 % (0-0)
[2018-09-13] MEDS: SOD CHLORIDE 0.45% 1,000 ML IV (10:43)
[2018-09-13] MEDS: HYDROmorphONE 0.2 MG/ML PCA IV (14:20)
[2018-09-13] MEDS: ONDANSETRON 4 MG INJ IV (15:47)
[2018-09-13] MEDS: SENNA TAB PO (21:08)
[2018-09-13] MEDS: DOCUSATE SODIUM 100 MG CAP PO (21:08)
[2018-09-13] MEDS: APREPITANT 80 MG CAPSULE PO (22:57)
[2018-09-13] MEDS: ONDANSETRON INJ 16 MG, DEXAMETHASONE 4 MG/ML 20 MG in DEXTROSE 5% 50 ML IV (22:58)
[2018-09-13] MEDS: CISPLATIN IV (23:48)
[2018-09-14] MEDS: PIPER-TAZO 3.375 GM IV (PMX) 100 ML IVPB ×4 (00:06→16:35)
[2018-09-14] MEDS: SOD CHLORIDE 0.45% 1,000 ML IV ×3 (00:07→16:22)
[2018-09-14] MEDS: ETOPOSIDE IV (01:58)
[2018-09-14] MEDS: SOD CHLORIDE 0.9% IV ×4 (01:58→22:55)
[2018-09-14] MEDS: HYDROmorphONE 0.2 MG/ML PCA IV ×2 (03:55→18:33)
[2018-09-14] MEDS: IFOSFAMIDE IV (04:41)
[2018-09-14] MEDS: ONDANSETRON 4 MG INJ IV ×3 (04:46→19:57)
[2018-09-14] MEDS: MESNA IV (04:56)
[2018-09-14 05:15] LABS: ADD MAN DIFF? NO
[2018-09-14 05:34] LABS: WHITE BLOOD COUNT 19.9 10^3/ul (4.8-10.8)
[2018-09-14 05:34] LABS: ABNORMAL IP MESSAGE 1; BASOPHILS % 0.1 % (0.0-2.0); HEMATOCRIT 29.2 % (42.0-52.0); HEMOGLOBIN 9.1 g/dl (14.0-18.0); LYMPHOCYTES # 0.5 10^3/ul (0.8-2.9); LYMPHOCYTES % 2.6 % (18.0-55.0); MEAN CORPUSCULAR HEMOGLOBIN 24.8 pg (29.0-33.0); MEAN CORPUSCULAR HGB CONC 31.2 g/dl (32.0-37.0); MEAN CORPUSCULAR VOLUME 79.6 fl (72.0-104.0); MEAN PLATELET VOLUME 7.8 fl (7.4-10.4); MONOCYTE # 0.3 10^3/ul (0.3-0.9); MONOCYTES % 1.7 % (0.0-13.0); NEUTROPHIL # 18.8 10^3/ul (1.6-7.5); NEUTROPHILS % 94.6 % (30.0-74.0); PLATELET COUNT 573 10^3/UL (140-415); POSITIVE DIFF @See below; RED BLOOD COUNT 3.67 10^6/ul (4.70-6.10); RED CELL DISTRIBUTION WIDTH 14.4 % (11.5-14.5)
[2018-09-14 05:36] LABS: ALBUMIN 2.3 g/dl (3.3-4.9)
[2018-09-14 05:42] LABS: ANION GAP 5 (5-13); BLOOD UREA NITROGEN 6 mg/dl (7-20); CALCIUM 7.9 mg/dl (8.4-10.2); CARBON DIOXIDE 29 mmol/L (21-31); CHLORIDE 104 mmol/L (97-110); CREATININE 0.51 mg/dl (0.61-1.24); Estimated GFR > 60 mL/min (>60); GLUCOSE 133 mg/dl (70-220); MAGNESIUM 2.4 mg/dl (1.7-2.5); POTASSIUM 4.1 mmol/L (3.5-5.1); SODIUM 138 mmol/L (135-144)
[2018-09-14 05:48] LABS: ADD UMIC NO; UR ASCORBIC ACID NEGATIVE (NEGATIVE); UR BILIRUBIN (Dip) NEGATIVE (NEGATIVE); UR BLOOD (Dip) NEGATIVE (NEGATIVE); UR CLARITY CLEAR (CLEAR); UR COLOR COLORLESS (YELLOW); UR GLUCOSE (Dip) 1+ mg/dL (NEGATIVE); UR KETONES (Dip) TRACE mg/dL (NEGATIVE); UR LEUKOCYTE ESTERASE (Dip) NEGATIVE Leu/ul (NEGATIVE); UR NITRITE (Dip) NEGATIVE (NEGATIVE); UR SPECIFIC GRAVITY (Dip) 1.005 (1.003-1.030); UR TOTAL PROTEIN (Dip) NEGATIVE (NEGATIVE); UR UROBILINOGEN (Dip) NEGATIVE (NEGATIVE)
[2018-09-14] MEDS: IBUPROFEN 600 MG TAB PO ×3 (06:00→22:12)
[2018-09-14] MEDS: PROCHLORPERAZINE 10 MG INJ IV ×2 (06:37→16:20)
[2018-09-14] MEDS: ENOXAPARIN 40 MG/0.4 ML SYG SC (08:27)
[2018-09-14] MEDS: SENNA TAB PO ×2 (09:00→20:46)
[2018-09-14] MEDS: DOCUSATE SODIUM 100 MG CAP PO ×2 (09:00→20:46)
[2018-09-14] MEDS: IPRATROPIUM (NEB) 0.5 MG/2.5 ML AMP HHN ×4 (09:00→21:00)
[2018-09-14] MEDS: COLCHICINE 0.6 MG CAP PO (09:00)
[2018-09-14] MEDS: LEVETIRACETAM 500 MG TAB PO ×2 (09:14→20:46)
[2018-09-14 11:25] LABS: ALANINE AMINOTRANSFERASE 23 IU/L (13-69); ALBUMIN 2.5 g/dl (3.3-4.9); ALBUMIN/GLOBULIN RATIO 0.75; ALKALINE PHOSPHATASE 62 IU/L (42-121); ANION GAP 4 (5-13); ASPARTATE AMINO TRANSFERASE 34 IU/L (15-46); BILIRUBIN,INDIRECT 0.4 mg/dl (0-1.1); BILIRUBIN,TOTAL 0.4 mg/dl (0.2-1.3); BLOOD UREA NITROGEN 8 mg/dl (7-20); CARBON DIOXIDE 31 mmol/L (21-31); CHLORIDE 101 mmol/L (97-110); CREATININE 0.48 mg/dl (0.61-1.24); Estimated GFR > 60 mL/min (>60); GLUCOSE 124 mg/dl (70-220); PHOSPHORUS 3.1 mg/dl (2.5-4.9); SODIUM 136 mmol/L (135-144); TOTAL PROTEIN 5.8 g/dl (6.1-8.1)
[2018-09-14] MEDS ORDERED: METOPROLOL 5 MG INJ (12:05)
[2018-09-14] MEDS ORDERED: MIDAZOLAM 1 MG/ML 2 ML INJ ×2 (12:07→12:25)
[2018-09-14] MEDS ORDERED: FENTAnyl 50 MCG/ML VIAL (12:07)
[2018-09-14] MEDS ORDERED: KETAMINE (50 MG/ML) 10 ML VIAL (12:10)
[2018-09-14] MEDS: LIDOCAINE 1% (MPF) 30 ML INJ (12:18)
[2018-09-14] MEDS: ONDANSETRON INJ 16 MG, DEXAMETHASONE 4 MG/ML 20 MG in DEXTROSE 5% 50 ML IV (21:55)
[2018-09-14] MEDS: CISPLATIN IV (22:55)
[2018-09-15] MEDS: PIPER-TAZO 3.375 GM IV (PMX) 100 ML IVPB ×5 (00:16→20:56)
[2018-09-15] MEDS: SOD CHLORIDE 0.9% IV ×4 (00:39→22:35)
[2018-09-15] MEDS: ETOPOSIDE IV (00:39)
[2018-09-15] MEDS: IFOSFAMIDE IV (02:31)
[2018-09-15] MEDS: ONDANSETRON 4 MG INJ IV ×2 (02:48→09:43)
[2018-09-15 05:35] LABS: ADD MAN DIFF? NO
[2018-09-15 05:39] LABS: WHITE BLOOD COUNT 18.6 10^3/ul (4.8-10.8)
[2018-09-15 05:39] LABS: ABNORMAL IP MESSAGE 1; BASOPHILS % 0.1 % (0.0-2.0); HEMATOCRIT 31.1 % (42.0-52.0); HEMOGLOBIN 9.6 g/dl (14.0-18.0); LYMPHOCYTES # 0.5 10^3/ul (0.8-2.9); LYMPHOCYTES % 2.4 % (18.0-55.0); MEAN CORPUSCULAR HEMOGLOBIN 24.7 pg (29.0-33.0); MEAN CORPUSCULAR HGB CONC 30.9 g/dl (32.0-37.0); MEAN CORPUSCULAR VOLUME 79.9 fl (72.0-104.0); MEAN PLATELET VOLUME 7.7 fl (7.4-10.4); MONOCYTE # 0.2 10^3/ul (0.3-0.9); MONOCYTES % 0.9 % (0.0-13.0); NEUTROPHIL # 17.7 10^3/ul (1.6-7.5); NEUTROPHILS % 95.3 % (30.0-74.0); PLATELET COUNT 589 10^3/UL (140-415); POSITIVE DIFF @See below; RED BLOOD COUNT 3.89 10^6/ul (4.70-6.10); RED CELL DISTRIBUTION WIDTH 14.5 % (11.5-14.5)
[2018-09-15] MEDS: IBUPROFEN 600 MG TAB PO ×3 (05:40→14:59)
[2018-09-15 06:18] LABS: ANION GAP 7 (5-13); BLOOD UREA NITROGEN 9 mg/dl (7-20); CALCIUM 8.2 mg/dl (8.4-10.2); CARBON DIOXIDE 30 mmol/L (21-31); CHLORIDE 99 mmol/L (97-110); CREATININE 0.56 mg/dl (0.61-1.24); Estimated GFR > 60 mL/min (>60); GLUCOSE 130 mg/dl (70-220); MAGNESIUM 2.2 mg/dl (1.7-2.5); SODIUM 136 mmol/L (135-144)
[2018-09-15 06:32] LABS: ADD UMIC NO; UR ASCORBIC ACID NEGATIVE (NEGATIVE); UR BILIRUBIN (Dip) NEGATIVE (NEGATIVE); UR BLOOD (Dip) NEGATIVE (NEGATIVE); UR CLARITY CLEAR (CLEAR); UR COLOR YELLOW (YELLOW); UR GLUCOSE (Dip) 1+ mg/dL (NEGATIVE); UR KETONES (Dip) 1+ mg/dL (NEGATIVE); UR LEUKOCYTE ESTERASE (Dip) NEGATIVE Leu/ul (NEGATIVE); UR NITRITE (Dip) NEGATIVE (NEGATIVE); UR TOTAL PROTEIN (Dip) NEGATIVE (NEGATIVE); UR UROBILINOGEN (Dip) NEGATIVE (NEGATIVE)
[2018-09-15] MEDS: PROCHLORPERAZINE 10 MG INJ IV ×2 (07:17→15:03)
[2018-09-15] MEDS: LEVETIRACETAM 500 MG TAB PO ×2 (07:18→20:56)
[2018-09-15] MEDS: HYDROmorphONE 0.2 MG/ML PCA IV (07:39)
[2018-09-15] MEDS: DOCUSATE SODIUM 100 MG CAP PO ×2 (07:55→20:56)
[2018-09-15] MEDS: COLCHICINE 0.6 MG CAP PO (07:55)
[2018-09-15] MEDS: SENNA TAB PO ×2 (07:55→20:56)
[2018-09-15] MEDS: IPRATROPIUM (NEB) 0.5 MG/2.5 ML AMP HHN ×4 (09:00→20:56)
[2018-09-15] MEDS: MESNA IV (09:17)
[2018-09-15] MEDS: ENOXAPARIN 40 MG/0.4 ML SYG SC (09:25)
[2018-09-15 12:07] LABS: CYTOMEGALOVIRUS ANTIBODY (IGG) >10.00 U/mL; CYTOMEGALOVIRUS ANTIBODY (IGM) <30.00 AU/mL
[2018-09-15 12:55] LABS: FLD RBC 2000 /uL; FLD WBC 1995 /cmm
[2018-09-15 13:17] LABS: FLD TYPE PERICARDIAL
[2018-09-15 13:17] LABS: FLD CLARITY SLIGHTLY CLOUDY; FLD COLOR YELLOW
[2018-09-15] MEDS: CEFTRIAXONE 1 GM/50 ML (PMX) 50 ML IVPB (13:24)
[2018-09-15] MEDS: ACETAMINOPHEN 325 MG TAB PO (15:01)
[2018-09-15 16:07] LABS: WEST NILE VIRUS ANTIBODY (IGG) <1.30 index; WEST NILE VIRUS ANTIBODY (IGM) <0.90 index
[2018-09-15] MEDS: ONDANSETRON INJ 16 MG, DEXAMETHASONE 4 MG/ML 20 MG in DEXTROSE 5% 50 ML IV (21:30)
[2018-09-15] MEDS: CISPLATIN IV (22:35)
[2018-09-16] MEDS: PIPER-TAZO 3.375 GM IV (PMX) 100 ML IVPB ×4 (00:28→18:30)
[2018-09-16] MEDS: ETOPOSIDE IV (00:32)
[2018-09-16] MEDS: SOD CHLORIDE 0.9% IV ×3 (00:32→08:44)
[2018-09-16] MEDS: IFOSFAMIDE IV (03:27)
[2018-09-16] MEDS: PROCHLORPERAZINE 10 MG INJ IV ×2 (03:55→21:08)
[2018-09-16 05:30] LABS: ADD MAN DIFF? NO
[2018-09-16] MEDS: HYDROmorphONE 0.2 MG/ML PCA IV (05:32)
[2018-09-16 05:37] LABS: WHITE BLOOD COUNT 21.5 10^3/ul (4.8-10.8)
[2018-09-16 05:37] LABS: ABNORMAL IP MESSAGE 1; BASOPHILS % 0.1 % (0.0-2.0); HEMATOCRIT 31.3 % (42.0-52.0); LYMPHOCYTES # 0.7 10^3/ul (0.8-2.9); LYMPHOCYTES % 3.3 % (18.0-55.0); MEAN CORPUSCULAR HEMOGLOBIN 25.2 pg (29.0-33.0); MEAN CORPUSCULAR HGB CONC 31.9 g/dl (32.0-37.0); MEAN CORPUSCULAR VOLUME 78.8 fl (72.0-104.0); MEAN PLATELET VOLUME 7.5 fl (7.4-10.4); MONOCYTE # 0.1 10^3/ul (0.3-0.9); MONOCYTES % 0.3 % (0.0-13.0); NEUTROPHIL # 20.4 10^3/ul (1.6-7.5); PLATELET COUNT 507 10^3/UL (140-415); POSITIVE DIFF @See below; RED BLOOD COUNT 3.97 10^6/ul (4.70-6.10); RED CELL DISTRIBUTION WIDTH 14.1 % (11.5-14.5)
[2018-09-16 05:43] LABS: NEUTROPHILS % 94.8 % (30.0-74.0)
[2018-09-16 06:05] LABS: ANION GAP 7 (5-13); BLOOD UREA NITROGEN 10 mg/dl (7-20); CALCIUM 8.2 mg/dl (8.4-10.2); CARBON DIOXIDE 28 mmol/L (21-31); CHLORIDE 100 mmol/L (97-110); Estimated GFR > 60 mL/min (>60); GLUCOSE 127 mg/dl (70-220); SODIUM 135 mmol/L (135-144)
[2018-09-16] MEDS: IBUPROFEN 600 MG TAB PO ×3 (06:05→21:13)
[2018-09-16] MEDS: MESNA IV (08:44)
[2018-09-16] MEDS: SENNA TAB PO ×2 (09:00→20:59)
[2018-09-16] MEDS: DOCUSATE SODIUM 100 MG CAP PO ×2 (09:00→20:59)
[2018-09-16] MEDS: COLCHICINE 0.6 MG CAP PO (09:04)
[2018-09-16] MEDS: LEVETIRACETAM 500 MG TAB PO ×2 (09:04→20:48)
[2018-09-16] MEDS: ONDANSETRON 4 MG INJ IV ×2 (09:11→13:36)
[2018-09-16] MEDS: ENOXAPARIN 40 MG/0.4 ML SYG SC (09:18)
[2018-09-16] MEDS ORDERED: IPRATROPIUM (NEB) 0.5 MG/2.5 ML AMP HHN (10:00)
[2018-09-16] MEDS: LIDOCAINE 1% (MPF) 5 ML VIAL SC (13:30)
[2018-09-16] MEDS: DIGOXIN 500 MCG INJ IV (14:49)
[2018-09-16] MEDS: SOD CHLORIDE 0.9% 500 ML IV (16:15)
[2018-09-17] MEDS: PIPER-TAZO 3.375 GM IV (PMX) 100 ML IVPB ×4 (00:27→19:03)
[2018-09-17] MEDS: ACETAMINOPHEN 325 MG TAB PO (04:51)
[2018-09-17 05:15] LABS: ADD MAN DIFF? NO
[2018-09-17 05:21] LABS: WHITE BLOOD COUNT 21.8 10^3/ul (4.8-10.8)
[2018-09-17 05:21] LABS: BASOPHIL # 0.1 10^3/ul (0.0-0.1); BASOPHILS % 0.2 % (0.0-2.0); HEMATOCRIT 31.9 % (42.0-52.0); HEMOGLOBIN 10.1 g/dl (14.0-18.0); LYMPHOCYTES # 1.1 10^3/ul (0.8-2.9); LYMPHOCYTES % 4.9 % (18.0-55.0); MEAN CORPUSCULAR HEMOGLOBIN 24.5 pg (29.0-33.0); MEAN CORPUSCULAR HGB CONC 31.7 g/dl (32.0-37.0); MEAN CORPUSCULAR VOLUME 77.2 fl (72.0-104.0); MEAN PLATELET VOLUME 7.8 fl (7.4-10.4); MONOCYTE # 0.1 10^3/ul (0.3-0.9); MONOCYTES % 0.3 % (0.0-13.0); NEUTROPHILS % 91.6 % (30.0-74.0); PLATELET COUNT 490 10^3/UL (140-415); RED BLOOD COUNT 4.13 10^6/ul (4.70-6.10); RED CELL DISTRIBUTION WIDTH 14.2 % (11.5-14.5)
[2018-09-17 05:47] LABS: ANION GAP 10 (5-13); BLOOD UREA NITROGEN 11 mg/dl (7-20); CALCIUM 8.1 mg/dl (8.4-10.2); CARBON DIOXIDE 24 mmol/L (21-31); CHLORIDE 99 mmol/L (97-110); CREATININE 0.65 mg/dl (0.61-1.24); Estimated GFR > 60 mL/min (>60); GLUCOSE 122 mg/dl (70-220); POTASSIUM 3.5 mmol/L (3.5-5.1); SODIUM 133 mmol/L (135-144)
[2018-09-17] MEDS: IBUPROFEN 600 MG TAB PO ×3 (06:05→21:25)
[2018-09-17] MEDS: ONDANSETRON 4 MG INJ IV ×3 (08:39→21:31)
[2018-09-17] MEDS: LEVETIRACETAM 500 MG TAB PO ×2 (08:39→21:25)
[2018-09-17] MEDS: ENOXAPARIN 40 MG/0.4 ML SYG SC (08:42)
[2018-09-17] MEDS: SENNA TAB PO ×2 (08:43→21:25)
[2018-09-17] MEDS: DOCUSATE SODIUM 100 MG CAP PO ×2 (08:43→21:24)
[2018-09-17 13:26] LABS: IRON 115 ug/dl (35-150)
[2018-09-17 13:35] LABS: % IRON SATURATION 68 % SAT (22-52); TOTAL IRON BINDING CAPACITY 170 ug/dl (241-421)
[2018-09-17 14:12] LABS: URIC ACID 1.7 mg/dl (3.1-7.9)
[2018-09-17] MEDS: METOPROLOL 5 MG INJ IV (19:58)
[2018-09-17] MEDS: HYDROmorphONE 0.2 MG/ML PCA IV (20:29)
[2018-09-18] MEDS: PIPER-TAZO 3.375 GM IV (PMX) 100 ML IVPB ×4 (00:22→17:08)
[2018-09-18] MEDS: IBUPROFEN 600 MG TAB PO ×3 (06:00→21:21)
[2018-09-18] MEDS: ONDANSETRON 4 MG INJ IV ×2 (06:56→17:07)
[2018-09-18] MEDS: METOPROLOL 5 MG INJ IV ×2 (07:01→21:21)
[2018-09-18] MEDS: LEVETIRACETAM 500 MG TAB PO ×2 (08:36→21:21)
[2018-09-18] MEDS: ACETAMINOPHEN 325 MG TAB PO (08:52)
[2018-09-18] MEDS: ENOXAPARIN 40 MG/0.4 ML SYG SC (09:00)
[2018-09-18] MEDS: SENNA TAB PO ×2 (10:36→21:21)
[2018-09-18] MEDS: DOCUSATE SODIUM 100 MG CAP PO ×2 (10:36→21:21)
[2018-09-18] MEDS: COLCHICINE 0.6 MG CAP PO (12:14)
[2018-09-18] MEDS ORDERED: LIDOCAINE 1% (MPF) 5 ML VIAL (16:38)
[2018-09-18] MEDS: HYDROmorphONE 0.2 MG/ML PCA IV (16:58)
[2018-09-18 22:14] LABS: FLD MN% 13.2 %; FLD RBC 11000 /uL; FLD WBC 1798 /cmm
[2018-09-18 22:41] LABS: FLD TYPE THORACENTHESIS
[2018-09-18 22:41] LABS: FLD CLARITY TURBID; FLD COLOR ORANGE
[2018-09-18 22:42] LABS: FLD PMN% 86.8 %
[2018-09-18 22:58] LABS: FLUID GLUCOSE 99 mg/dl; FLUID LD 4582 U/L; FLUID TYPE THORACENTESIS FLUID
[2018-09-18 22:59] LABS: FLUID TOTAL PROTEIN 2.9 g/dl; FLUID TYPE THORACENTESIS FLUID
[2018-09-19] MEDS: PIPER-TAZO 3.375 GM IV (PMX) 100 ML IVPB ×3 (00:05→11:56)
[2018-09-19] MEDS: ONDANSETRON 4 MG INJ IV ×2 (04:24→17:00)
[2018-09-19] MEDS: METOPROLOL 5 MG INJ IV (04:25)
[2018-09-19 05:30] LABS: ABNORMAL IP MESSAGE 1; HEMATOCRIT 26.2 % (42.0-52.0); HEMOGLOBIN 8.5 g/dl (14.0-18.0); MEAN CORPUSCULAR HEMOGLOBIN 24.7 pg (29.0-33.0); MEAN CORPUSCULAR HGB CONC 32.4 g/dl (32.0-37.0); MEAN CORPUSCULAR VOLUME 76.2 fl (72.0-104.0); MEAN PLATELET VOLUME 8.1 fl (7.4-10.4); PLATELET COUNT 274 10^3/UL (140-415); POSITIVE DIFF @See below; RED BLOOD COUNT 3.44 10^6/ul (4.70-6.10); RED CELL DISTRIBUTION WIDTH 13.9 % (11.5-14.5)
[2018-09-19 05:30] LABS: WHITE BLOOD COUNT 8.7 10^3/ul (4.8-10.8)
[2018-09-19 05:32] LABS: ADD MAN DIFF? YES
[2018-09-19 05:46] LABS: ANION GAP 6 (5-13); BLOOD UREA NITROGEN 11 mg/dl (7-20); CALCIUM 7.8 mg/dl (8.4-10.2); CARBON DIOXIDE 27 mmol/L (21-31); CHLORIDE 97 mmol/L (97-110); CREATININE 0.61 mg/dl (0.61-1.24); Estimated GFR > 60 mL/min (>60); GLUCOSE 114 mg/dl (70-220); MAGNESIUM 2.1 mg/dl (1.7-2.5); PHOSPHORUS 2.6 mg/dl (2.5-4.9); POTASSIUM 3.9 mmol/L (3.5-5.1); SODIUM 130 mmol/L (135-144)
[2018-09-19] MEDS: IBUPROFEN 600 MG TAB PO ×2 (06:17→15:24)
[2018-09-19] MEDS: PROCHLORPERAZINE 10 MG INJ IV (08:40)
[2018-09-19 09:39] LABS: ANISOCYTOSIS 1+ (0-0); BAND NEUTROPHILS % (M) 1 % (0-10); BURR CELLS 1+ (0-0); EOSINOPHILS % (M) 4 % (0-7); GIANT THROMBO% (M) 1 % (0-0); LYMPHOCYTES #M 1.2 10^3/ul (0.8-2.9); LYMPHOCYTES % (M) 14 % (18-55); MICROCYTOSIS 1+ (0-0); OVALOCYTES 1+ (0-0); PLATELET ESTIMATE NORMAL; POIKILOCYTOSIS 1+ (0-0); RBC MORPHOLOGY COMMENT @See below; SEGMENTED NEUTROPHILS (M) % 81 % (30-74); SMUDGE%M 16 % (0-0); WBC MORPHOLOGY COMMENT @See below
[2018-09-19] MEDS: COLCHICINE 0.6 MG CAP PO (09:59)
[2018-09-19] MEDS: SENNA TAB PO (09:59)
[2018-09-19] MEDS: DOCUSATE SODIUM 100 MG CAP PO (09:59)
[2018-09-19] MEDS: LEVETIRACETAM 500 MG TAB PO (09:59)
[2018-09-19] MEDS: ENOXAPARIN 40 MG/0.4 ML SYG SC (10:02)
[2018-09-19] MEDS ORDERED: HYDROmorphONE 1 MG/ML SYG IV ×2 (15:47→15:48)
== END 2018-09-19 16:12 | disposition short-term general hospital (02) | DRG 871 ==
LOC: ICU 09-08 15:34 → E/R 01:43 → TEL 03:30
PROC: 0W9D30Z Drainage of Pericardial Cavity with Drainage Device, Percutaneous Approach (ICD-10-PCS; principal; 2018-09-14 11:00)
PROC: 0W9B3ZX Drainage of Left Pleural Cavity, Percutaneous Approach, Diagnostic (ICD-10-PCS; 2018-09-14 11:35)
PROC: 0W9B3ZX Drainage of Left Pleural Cavity, Percutaneous Approach, Diagnostic (ICD-10-PCS; 2018-09-14 11:35)
PROC: 0W9B3ZX Drainage of Left Pleural Cavity, Percutaneous Approach, Diagnostic (ICD-10-PCS; 2018-09-14 11:35)
DX: A41.9 Sepsis, unspecified organism (principal); J18.9 Pneumonia, unspecified organism; E43 Unspecified severe protein-calorie malnutrition; G93.6 Cerebral edema; C38.1 Malignant neoplasm of anterior mediastinum; C79.82 Secondary malignant neoplasm of genital organs; J90 Pleural effusion, not elsewhere classified; I31.3 Pericardial effusion (noninflammatory); I31.4 Cardiac tamponade; C62.90 Malignant neoplasm of unspecified testis, unspecified whether descended or undescended; R65.20 Severe sepsis without septic shock; R54 Age-related physical debility; R00.0 Tachycardia, unspecified; G40.909 Epilepsy, unspecified, not intractable, without status epilepticus; D50.9 Iron deficiency anemia, unspecified; F41.9 Anxiety disorder, unspecified; F32.9 Major depressive disorder, single episode, unspecified; D63.8 Anemia in other chronic diseases classified elsewhere; Y95 Nosocomial condition; R09.02 Hypoxemia; D69.6 Thrombocytopenia, unspecified; D49.6 Neoplasm of unspecified behavior of brain; R06.03 Acute respiratory distress
CPT/HCPCS: 32555; 36415; 36569; 36600; 70552; 71045; 71046; 71250; 76937; 76942; 80048; 80053; 80202; 81003; 82040; 82105; 82607; 82728; 82803; 82945; 83540; 83605; 83615; 83690; 83735; 84100; 84145; 84157; 84443; 84484; 84560; 85025; 85049; 85610; 85670; 85730; 86140; 86592; 86644; 86703; 86704; 86706; 86788; 86789; 86803; 86850; 86900; 86901; 87040-91; 87070; 87081; 87086; 87102; 87116; 87205; 87340; 87400; 87449; 87536; 87591; 88104; 88261; 88305; 88341; 88342; 89051; 93005; 93306; 93308; 94640; 94644; 94664; 96374; 96375; 99285-25; J9181; J9209